=== PATIENT | female | born 1980 | race Caucasian/White ===

== ENCOUNTER 2017-01-06 14:53 | Observation (INO) | payer OTHER ==
[~2017-01-06 14:53] MED LIST: LACT1CAP75 PO; LISI30TA5 PO; NORG1TAB7 PO; Oxycodone Hcl PO
[2017-01-06] MEDS ORDERED: Magnesium Sulfate 20 Gm/500 mL Water Premix IV ONE (17:40)
[2017-01-06] MEDS ORDERED: Calcium GLUCOnate 10% (Gm) 1 Gm/10 mL Inj ONE (18:16)
[2017-01-06] MEDS ORDERED: Magnesium Sulfate 4 Gm/100 mL Water Premix IV ONE (18:21)
[2017-01-06 18:33] LABS: Mean Corpuscular Hemoglobin 30.6 pg (27.0-35.0); Mean Corpuscular Volume 90.9 fL (81-100)
--- NOTE | 2017-01-06 18:50 | HP ---
[address] [address] HISTORY AND PHYSICAL PATIENT: DEVYN UMAÑA : 1980 MR#: [id number] ADMIT: 01/06/2017 JOB ID: [id number] DATE: 01/06/2017 HISTORY OF PRESENT ILLNESS: The patient has been followed prenatally in my office. See record for details. She has previously undergone section for a 39 week . There were no reported blood pressure issues with that . However, with this initial blood pressures were 126/94 and then 138/84 and the patient was sent to perinatologist, Dr. Salvador Calle, for consultation and management. He initiated blood pressure medication after hemodynamic studies and most recently the patient has been given labetalol 200 mg p.o. t.i.d. Blood pressures have remained stable until early this week when blood pressure was noted to be 126/100. She was thus sent to the Center for blood pressure tracking that day, initially significantly elevated at times , yet then gradually diminished. At that time, she indicated that she had not used her midday labetalol dose and it was thought that this might be a contributing factor to elevated blood pressure readings. There was no proteinuria and no preeclampsia lab abnormalities or visual or nervous system changes. She was sent home to closely track blood pressure and to use her medication faithfully and this was accomplished. Blood pressures still remained mildly elevated, and higher than where they had been, although improved with regular medication use. However, today she returned to [facility] for nonstress testing in light of the chronic hypertension and antihypertensive medication use. Blood pressures have been elevated, between 130s to 160s over 80s to 99, mostly in the 140s over high 80s to mid 90s. These readings are significant changes from those that were noted throughout most of on antihypertensive medication. After blood pressures had started down somewhat, blood pressure then climbed back up to 160s over 99 after going to the bathroom. Although not having visual changes, headache, or other symptoms, and without proteinuria on dip, I am concerned with the blood pressure change that has occurred, whereas previously stable on antihypertensive medication. I spoke with Dr. Salvador Calle just after 5 p.m. through [employer] and we discussed course involving the blood pressures and its management thus far, and the change in blood pressures currently. He shared these concerns and he indicated that the patient should be hospitalized, and we agreed to send patient to the [facility] due to her status and recent significant change in hypertension as described above. The patient was also to be placed on magnesium sulfate therapy during transport per Dr. Calle. He indicated that he would contact [facility] labor and delivery and make arrangements there. Note that patient has otherwise felt okay. Preeclampsia labs have been drawn, with results pending. heart tracing has been good, without labor. In summary, then, the patient is now at 32 and 1/7 weeks along with second with progressive hypertension noted this week in spite of antihypertensive medication as prescribed under good management by Dr. Salvador Calle. The patient is thus being transported to the [facility] this evening for further management per Dr. Calle and team, with magnesium sulfate therapy infusing at his request during transport. PHYSICAL EXAMINATION: Last height, weight, and blood pressure 62-1/2 inches, 227 pounds, and blood pressure range in the 130s to 160s over 80s to high 90s (most recent blood pressure 141/95). Neck: No thyromegaly. Lungs: Clear to auscultation and percussion. Heart: Regular in rate and rhythm (heart rate in the 70s). Abdomen: Last fundal height in the office 35 cm. Positive heartbeat. No pelvic examination accomplished. LABORATORY DATA: Urine dip for protein negative. Preeclampsia labs pending. IMPRESSION: 1. 32-plus week . 2. Chronic hypertension under management per Dr. Calle, perinatologist at [facility], using labetalol 200 mg p.o. t.i.d. However, change in blood pressure readings this week in spite of ongoing labetalol use, warranting further assessment and management including magnesium sulfate therapy at least initially in case preeclampsia is developing. 3. Obesity. 4. Advanced maternal age, quad screen and level two sonogram negative. 5. Prior section, for planned repeat plus bilateral tubal ligation at her request. 6. Anterior placental location, likely cephalad to the scar per [employer]. 7. Rubella immune. 8. Rh positive. 9. Prior smoker (stopped in 2001). 10. Eye surgeries as a child. 11. Family history of hypertension (parents), and breast cancer. PLAN: I appreciate Dr. Calle's recommendation for transport of this patient to the [facility] in the setting current significant progressive blood pressure elevation in a patient with chronic hypertension on labetalol. Transport will soon occur this evening with magnesium sulfate therapy on board as recommended per Dr. Calle. Preeclampsia lab work has been obtained, reports pending. MTDD
[2017-01-06] MEDS ORDERED: Magnesium Sulf 4 Gm/100 mL H2O 4 GM in IV Premix 1 EACH IV ONE (19:45)
[2017-01-06] MEDS ORDERED: Calcium GLUCOnate 10% (Gm) 1 Gm/10 mL Inj IV PRN (19:45)
[2017-01-06] MEDS ORDERED: Magnesium Sulf 20 Gm/500mL H2O 20 GM in IV Premix 1 EACH IV SCH (19:45)
== END 2017-01-06 19:05 | disposition short-term general hospital (02) ==
LOC: FBCO 14:53 → FBC 17:35
PROVIDERS: ADMIT Obstetrics & Gynecology; ATTEND Obstetrics & Gynecology
DX: O16.3 Unspecified maternal hypertension, third trimester (principal); Z3A.32 32 weeks gestation of pregnancy; O09.523 Supervision of elderly multigravida, third trimester; O34.29 Maternal care due to uterine scar from other previous surgery; O99.213 Obesity complicating pregnancy, third trimester; Z87.891 Personal history of nicotine dependence
CPT/HCPCS: 36415; 59025; 82565; 84450; 84460; 84520; 84550; 85027; G0378; J0610; J3475